=== PATIENT | male | born 1995 | race Native Hawaiian/Other Pacific Islander ===

== ENCOUNTER 2017-02-16 20:40 | Emergency (ER) | payer SELFPAY ==
[~2017-02-16] VITALS: Ht 172.7 cm; Wt 100.0 kg
[2017-02-16 21:02] VITALS: BP 128/81; PULSE 89; RESP 16; O2SAT 100
--- NOTE | 2017-02-16 21:42 | ED.REPORT ---
HPI-General Illness Date of Service Feb 16, 2017 ED Provider: Dru Rey MD Patient is a 21 year old male who presents to the ED complaining of abdominal pain onset a week ago. Associated symptoms include nausea, vomiting, chills, diarrhea, fatigue, generalized weakness and headache. He denies cough or dysuria. The patient states that he was seen at the clinic a few days ago where he was diagnosed with the "stomach flu". He states that the weakness is new and he has just been feeling generally ill. Nursing Notes Stated Complaint: NAUSEA, VOMITING, HEADACHE, LOSS OF ENERGY Chief Complaint: Male Abdominal Pain Nursing Notes Reviewed: Yes Allergies: Coded Allergies: No Known Allergies (Unverified , 02/16/17) General Time Seen by MD: 21:41 Chief Complaint Abdominal pain Hx Obtained From: Patient Arrived By: Walk-in Sudden in Onset?: Yes Onset Occurred: 1 week ago Symptom Duration: Since onset Location: : Abdomen Quality: Painful Recent Healthcare: No recent hospitalization Past Medical History Past Medical History none reported Smoking History Unknown if Ever Smoker Social History Other Social History: From out of town Ambulatory Status Independent Review of Systems Full Review of Systems Constitutional: Reports: Chills, Fatigue, Malaise, Weakness - generalized, Denies: Fever Respiratory: Denies: Non-productive cough, Shortness of breath GI: Reports: Abdominal pain, Diarrhea, Nausea, Vomiting Male: Denies Dysuria Skin: Denies Itching, Denies Rash Neurologic: Reports: Headache Complete sys rev & neg: except as marked. Physical Exam Vital Signs Vital Signs Date Time Temp Pulse Resp B/P Pulse Ox O2 Delivery O2 Flow Rate FiO2 02/17/17 02:55 65 16 116/65 98 Room Air 02/16/17 21:02 37.4 89 16 128/81 100 Room Air Initial VS: Reviewed, Vital signs normal General/Constitutional: Awake, Alert Head / Eyes: Atraumatic, Normocephalic, PERRL, EOMI Respiratory / Chest: Atraumatic, Breath sounds NL, Breath sounds = bilat, No respiratory distress Cardiovascular: Heart rate NL, Regular rhythm, Heart sounds NL Abdomen: Atraumatic, Soft Tenderness/Guarding/Rebound: Positive: Tender LLQ..., Tender RLQ... (Mild) Upper Extremities Upper Extremity / MS: Atraumatic, Full range of motion Skin: Atraumatic, Color NL, No rash, Warm, Dry Neurologic: Oriented X3, Speech NL Interpretation & Diagnostics Lab Results Interpretation Result Diagram: 02/16/17 2218 02/16/17 2218 Test 02/16/17 22:04 02/16/17 22:18 Urine Color Dark yellow (YELLOW) Urine Appearance Clear (CLEAR,HAZY) Urine pH 6.0 (5.0-8.0) Urine Specific Glidden 1.015 (1.003-1.035) Urine Protein Tracemg/dL (NEG,TRACE) Urine Glucose (UA) Negativemg/dL (NEGATIVE) Urine Ketones 40mg/dL (NEGATIVE) Urine Occult Blood Small (NEGATIVE) Urine Nitrite Negative (NEGATIVE) Urine Bilirubin Negative (NEGATIVE) Urine Urobilinogen 1.0mg/dL (NORMAL) Urine Leukocyte Esterase Negative (NEGATIVE) Urine RBC 3-10/hpf (0-2) Urine WBC 0-5/hpf (0-5) Urine Epithelial Cells Occasional/hpf (NONE-MOD) Urine Crystals None seen (NONE SEEN) Urine Bacteria Few/hpf (NONE-FEW) Urine Hyaline Casts None/lpf (NONE) Urine Granular Casts None seen (NONE SEEN) Urine Waxy Casts None seen (NONE SEEN) Urine Red Blood Cell Casts None seen (NONE SEEN) Urine White Blood Cell Casts None seen (NONE SEEN) Urine Mucus None seen (None Seen) Urine Trichomonas None seen (NONE SEEN) Urine Yeast None (NONE SEEN) Urinalysis Comment None Urine Culture Reflexed Not indicated White Blood Count 5.3th/mm3 (3.8-10.1) Red Blood Count 5.98mil/mm3 (4.40-5.80) Hemoglobin 16.6g/dL (13.8-17.2) Hematocrit 47.8% (41.0-50.0) Mean Corpuscular Volume 79.9fL (81-100) Mean Corpuscular Hemoglobin 27.8pg (27.0-35.0) Mean Corpuscular Hemoglobin Concent 34.7% (32.0-37.0) Red Cell Distribution Width 12.9% (12.3-15.4) Platelet Count 246bil/L (150-400) Neutrophils (%) (Auto) 52% (40-74) Lymphocytes (%) (Auto) 33% (14-46) Monocytes (%) (Auto) 9% (4-12) Eosinophils (%) (Auto) 0% (0-5) Basophils (%) (Auto) 1% (0-3) Band Neutrophils % 5% (1-5) Hematology Comments Sodium Level 131mEq/L (134-144) Potassium Level 4.1mEq/L (3.5-5.2) Chloride Level 91mEq/L (97-108) Carbon Dioxide Level 21mmol/L (18-29) Blood Urea Nitrogen 11mg/dL (6-20) Creatinine 1.01mg/dL (0.76-1.27) Estimat Glomerular Filtration Rate 98mL/min (>59) Glucose Level 86mg/dL (60-99) Calcium Level 9.5mg/dL (8.5-10.1) Magnesium Level 2.2mg/dL (1.6-2.6) Total Bilirubin 0.6mg/dL (0.0-1.2) Aspartate Amino Transf (AST/SGOT) 39U/L (0-50) Alanine Aminotransferase (ALT/SGPT) 38U/L (0-44) Alkaline Phosphatase 63U/L (25-150) Total Protein 8.8g/dL (6.4-8.4) Albumin 4.7g/dL (3.4-5.0) Lipase 42U/L (13-60) Hold Bernard Top Tube Received (Received) Lab values outside NL range: no clinical significance. CT Abd / Pelvis Interpretation CONCLUSION: Normal appendix. Mesenteric adenitis. Findings of a subacute infarction or laceration within the splenic upper pole; no evidence for active bleeding or splenic subcapsular hematoma. These findings were discussed with Dr. Mancilla at 02/17/17 0041 at 0043 Interpretation / Wet Read by: Interpret - Radiologist, Discussed w radiologist Re-Eval/Medical Decision Med Decision/Clinical Course Diffuse abdominal discomfort and malaise for a couple days with normal labs and CT findings of mesenteric adenitis with normal appendix. Unable to give us a stool sample. Sent home with stool collection kit. Time of Eval: 00:47 Re-Evaluation/Progress Note: Discussed all results, plan to try to eat and stool sample. Time of Eval: 02:49 Re-Evaluation/Progress Note: Discussed plan for discharge. Patient understands and agrees to plan. All questions were addressed. Counseled Regarding: Diagnosis, Lab results, Need for follow-up, When/why to return to ED Discharge & Departure Primary Impression: Mesenteric adenitis Additional Impression: Gastroenteritis Disposition: Home Discharge Condition All VS Reviewed: Yes Condition: Stable Patient Instructions: Gastroenteritis (ED) Additional Instructions: Your labs and CT scan were reassuring. There was evidence of some infection in your intestines. You were given a stool collection kit. Return to the sample to the clinic or ED for further testing regarding the type of infection. You can take Tylenol as directed for pain. Be sure to drink plenty of fluids. Follow up with your primary care physician this week. Return to the emergency department if you develop any new or concerning symptoms. Referrals: [facility] Scribe Attestation Portions of this note were transcribed by Maria Victoria De La Torre. I, Dr. Rey personally performed the history, physical exam and medical decision-making; I reviewed and confirmed the accuracy of the information in the transcribed note. Signed by: Wilner Sales, 02/16/17 Krunal Alicia MD Feb 16, 2017 21:42 Dru Rey MD Feb 16, 2017 23:15 Edith De La Torre Feb 16, 2017 23:19
[2017-02-16 22:23] LABS: APPEARANCE,URINE CLEAR (CLEAR,HAZY); COLOR,URINE DARK YELLOW (YELLOW)
[2017-02-16 22:24] LABS: OCCULT BLOOD,URINE SMALL (NEGATIVE)
[2017-02-16 22:42] LABS: Magnesium 2.2 mg/dL (1.6-2.6)
[2017-02-16 22:50] LABS: Mean Corpuscular Hemoglobin 27.8 pg (27.0-35.0); Mean Corpuscular Volume 79.9 fL (81-100)
[2017-02-16 22:51] LABS: Platelet Count 246 bil/L (150-400)
[2017-02-16 22:54] LABS: BASOPHILS % (AUTO) 1 % (0-3); EOSINOPHILS % (AUTO) 0 % (0-5); MONOCYTES % (AUTO) 9 % (4-12); NEUTROPHILS % (AUTO) 52 % (40-74)
[2017-02-16] MEDS ORDERED: Ondansetron 2 mg/mL 2 mL Inj IVPUSH PRN (23:55)
[2017-02-16] MEDS ORDERED: 0.9% Sodium Chloride 1,000 ML IV ONE (23:55)
[2017-02-17 02:55] VITALS: BP 116/65; PULSE 65; RESP 16; O2SAT 98
--- NOTE | 2017-02-17 08:47 | DRSVH ---
PROCEDURE: CT ABDOMEN AND PELVIS WITH CONTRAST ([id number]) INDICATIONS: abdominal pain TECHNIQUE: After the administration of intravenous contrast, 5 mm thick sections acquired from the diaphragm to the symphysis. 5 mm coronal and sagittal reformats were acquired. For radiation dose reduction, the following was used: automated exposure control, adjustment of mA and/or kV according to patient siz e. COMPARISON: None. FINDINGS: Image quality: Excellent. ABDOMEN: Lung bases: Lung bases are clear. Heart size is normal. Solid organs: Liver and spleen are normal in size. There is a wedge-shaped hypoattenuating lesion in the superior margin of the spleen which could represent a subacute infarct were laceration. No evide nce of contrast extravasation in the region of the splenic lesion. Gallbladder is within normal limit s. Biliary system is non dilated. Pancreas enhances normally. No adrenal nodules. Kidneys demonst rate normal size and enhancement, without hydronephrosis. Peritoneum and bowel: Bowel loops demonstrate normal wall thickness and caliber. No free fluid or a ir. The appendix is normal. Nodes and vessels: No retroperitoneal or mesenteric adenopathy by size criteria. Aorta and inferior vena cava are normal in size. Miscellaneous: No ventral hernias. PELVIS: Genitourinary: Bladder wall thickness is normal. Miscellaneous: No inguinal hernias or adenopathy. Bones: No suspicious bony lesions. No vertebral body compression fractures. IMPRESSION: 1. Wedge-shaped, hypoattenuating lesion in the spleen which could represent subacute infarct or lacer ation. Please correlate with clinical history. 2. No active hemorrhage or subcapsular hematoma associated with the splenic laceration/infarct. 3. No free fluid or air. 4. No dilated loops of bowel. 5. The appendix is normal. Dictated by: Gertrude Hahn MD, PhD on 02/17/2017 at 8:40 Approved by: Gertrude Hahn MD, PhD on 02/17/2017 at 8:45
== END 2017-02-17 03:05 | disposition home or self-care (01) ==
LOC: SED 20:40
DX: I88.0 Nonspecific mesenteric lymphadenitis (principal); K52.9 Noninfective gastroenteritis and colitis, unspecified
CPT/HCPCS: 36415; 74177; 80053; 81000; 83690; 83735; 85025; 96361; 96374; 96375; 99285; J1885; J2405; J7030; Q9967